=== PATIENT | male | born 1990 | race Caucasian/White ===

== ENCOUNTER 2020-05-19 18:49 | Emergency (ER) | payer BC ==
[2020-05-19 19:07] VITALS: BP 132/72; PULSE 68; TEMP 98.1; BMI 23.7
[2020-05-19] MEDS ORDERED: hydrOXYzine PAMOATE 50 MG CAPSULE (FP) PO ONE (19:21)
[2020-05-19] MEDS ORDERED: hydrOXYzine PAMOATE 50 MG CAPSULE (FP) ONE (19:40)
== END 2020-05-19 19:48 | disposition home or self-care (01) ==
LOC: JER 18:49
DX: F12.920 Cannabis use, unspecified with intoxication, uncomplicated (principal)
CPT/HCPCS: 99283-25

== ENCOUNTER 2021-02-27 01:13 | Emergency (ER) | payer BC ==
[2021-02-27 01:44] VITALS: BP 118/70; PULSE 57; TEMP 98; BMI 25.5
[2021-02-27] MEDS ORDERED: diphenhydrAMINE HCL 25 MG CAPSULE (FP) PO ONE (02:15)
[2021-02-27] MEDS ORDERED: SODIUM CHLORIDE 0.9% 500 ML INFUS.BAG IV ONE (02:15)
[2021-02-27] MEDS ORDERED: FAMOTIDINE 20 MG TABLET PO ONE (02:15)
[2021-02-27] MEDS ORDERED: ALBUTEROL SO4 HFA INHALER IH ONE ×2 (02:52→02:54)
== END 2021-02-27 03:09 | disposition home or self-care (01) ==
LOC: JER 01:13
PROC: 3E0F7GC Introduction of Other Therapeutic Substance into Respiratory Tract, Via Natural or Artificial Opening (ICD-10-PCS; principal; 2021-02-27)
DX: R42 Dizziness and giddiness (principal); J45.901 Unspecified asthma with (acute) exacerbation
CPT/HCPCS: 93005; 93010; 99284-25